=== PATIENT | female | born 1990 | race Two or more races ===

== ENCOUNTER 2019-07-19 09:56 | Inpatient (IN) | payer OTHER ==
[~2019-07-19] VITALS: Ht 162.6 cm; Wt 80.3 kg
[~2019-07-19 09:56] MED LIST: MAALOX525 MG/15 PO; OMEPRAZOLE20 M1 PO; PEPCID20 MG PO
--- NOTE | 2019-07-19 10:18 | NUR ---
SE RECIBE AL PACIENTE ALERTA Y ORIENTADA EN ROSY PHILIP ESFERAS. PACIENTE REFIERE QUE VIENE POR DOLOR EN EL LADO DERECHO DE LA BLANE, MAREOS, PERDIDA DE VISION Y DEBILIDAD EN EL BRAZO DERECHO. SE LE REALIZA UN EKG AL PACIENTE Y SE L PRESENTA AL DR. COLEMAN PARA SER INTERPRETADO.
--- NOTE | 2019-07-19 10:32 | NUR ---
SE LE PRESENTA EL EKG AL DR. COLEMAN Y EL MISMO UBICA AL PACIENTE EN PRANAV DE ESPERA.
--- NOTE | 2019-07-19 12:38 | NUR ---
DR. FERRARO EVALUA A LA PACIENTE Y CONSULTA TRATAMIENTO CON DR. COLEMAN. DR. FERRARO ENTREGA PACIETNE A DR. COLEMAN. SE TRASLADA PACIENTE A OBSERVACION CAMA #12. SE LE ORIENTA SOBRE TRATAMIENTO, SAMANTHA DE MUESTRAS, ESTUDIOS E INTERVENCIONES DE ENFERMERIA. VERBALIZA ENTENDER. SE LE NOTIFICA A PERSONAL SECRETARIA SOBRE ESTUDIOS PENDIENTES. DR. FERRARO ORDENA METHYLPREDNISOLONE 1GM/ NS9 BAJANDO A 10ML/HR POR IV PUMP. LOCK ON. SE LE ADMINSITRA DRIP DIEGO ORDEN MEDICA. SE EXTRAEN MUESTRAS Y SE ENVIAN A LABORATORIO. PENDIENTE RESULTADOS. SE OBSERVA ALERTA, ORIENTADA X3, CONCIENTE, SIGUE COMANDOS Y POSEE FUERZA Y TREVOR MUSCULAR POST ADMINSITRACION. SE LE ENTREGA PACIENTE A [facility] PARA CONTINUIDAD DE TRATAMIENTO MEDICO.
[2019-07-25] MEDS ORDERED: MEDROLPACK PO (10:52)
== END 2019-07-25 11:32 | disposition home or self-care (01) | DRG 123 ==
LOC: ER 09:56 → SEC-K 17:55 → MEDI 17:55
PROVIDERS: ADMIT Internal Medicine
PROC: B030YZZ Magnetic Resonance Imaging (MRI) of Brain using Other Contrast (ICD-10-PCS; principal; 2019-07-19)
PROC: BW28Y0Z Computerized Tomography (CT Scan) of Head using Other Contrast, Unenhanced and Enhanced (ICD-10-PCS; 2019-07-19)
DX: H46.8 Other optic neuritis (principal); G35 Multiple sclerosis
CPT/HCPCS: 70545

== ENCOUNTER → 2019-12-19 | Outpatient (CLI) | payer OTHER ==
[~2019-12-19] MED LIST changes: +MEDROLPACK PO
== END | disposition home or self-care (01) ==
LOC: MRI 12:48
DX: G35 Multiple sclerosis (principal)
CPT/HCPCS: 72156; 72157

== ENCOUNTER 2022-02-16 16:42 | Emergency (ER) | payer OTHER ==
[~2022-02-16] VITALS: Ht 167.6 cm; Wt 88.0 kg
[2022-02-16] MEDS ORDERED: KESIMPTA P20 MG/0.4 SQ (17:57)
[2022-02-16] MEDS ORDERED: AZITHROMYCIN1 GM PO (21:58)
[2022-02-16] MEDS ORDERED: TUSNEL DM LIQU473 ML PO (21:58)
[2022-02-16] MEDS ORDERED: SINUS RINSE ST1 EACH NASAL (21:59)
[2022-02-16] MEDS ORDERED: FLONASE ALLERG9.9 ML NASAL (21:59)
== END 2022-02-16 22:15 | disposition home or self-care (01) ==
LOC: ER 16:42
DX: U07.1 COVID-19 (principal)

== ENCOUNTER 2022-08-03 06:42 | Outpatient (CLI) | payer OTHER ==
[~2022-08-03 06:42] MED LIST changes: +AZITHROMYCIN1 GM PO; +FLONASE ALLERG9.9 ML NASAL; +KESIMPTA P20 MG/0.4 SQ; +SINUS RINSE ST1 EACH NASAL; +TUSNEL DM LIQU473 ML PO
== END 2022-08-03 07:15 | disposition home or self-care (01) ==
LOC: MRI 06:42
PROVIDERS: ATTEND General Practice
DX: G35 Multiple sclerosis (principal)
CPT/HCPCS: 70553; 72156; 72157